=== PATIENT | male | born 1955 | race African-American/Black ===

== ENCOUNTER 2017-02-23 07:21 | Emergency (ER) | payer OTHER, MEDICAID ==
[2017-02-23 07:29] VITALS: RESP 20; O2SAT 94
--- NOTE | 2017-02-23 07:58 | EDPHY ---
H & P Stated Complaint: pain B Hamstings since Saturday; back pain Time Seen by Provider: 02/23/17 07:48 HPI/ROS: CHIEF COMPLAINT: Bilateral hamstring pain HISTORY OF PRESENT ILLNESS: The patient is a 61-year-old man who comes to the emergency department complaining of hamstring pain bilaterally. He is concerned about DVT. He has a history of DVT and PEs. He is currently taking Coumadin. His INR 2 weeks ago was 3.0. He also has a history of chronic low back pain and sciatica and is treated with gabapentin and pain management. He states that yesterday he was hoping people move and on his feet more than usual. He thinks that this may have caused muscle pain or worsening of his sciatica but is concerned and wants to make sure does not have another blood clot. REVIEW OF SYSTEMS: Constitutional: denies: chills, fever, recent illness, recent injury EENTM: denies: blurred vision, double vision, nose congestion Respiratory: denies: cough, shortness of breath Cardiac: denies: chest pain, irregular heart rate, lightheadedness, palpitations Gastrointestinal/Abdominal: denies: abdominal pain, diarrhea, nausea, vomiting, blood streaked stools Genitourinary: denies: dysuria, frequency, hematuria, pain Musculoskeletal: See HPI Skin: denies: lesions, rash, jaundice, bruising Neurological: denies: headache, numbness, paresthesia, tingling, dizziness, weakness Hematologic/Lymphatic: denies: blood clots, easy bleeding, easy bruising Immunologic/allergic: denies: HIV/AIDS, transplant EXAM: GENERAL: Well-appearing, well-nourished and in no acute distress. HEAD: Atraumatic, normocephalic. EYES: Pupils equal round and reactive to light, extraocular movements intact, sclera anicteric, conjunctiva are normal. ENT: TMs normal, nares patent, oropharynx clear without exudates. Moist mucous membranes. NECK: Normal range of motion, supple without lymphadenopathy or JVD. LUNGS: Breath sounds clear to auscultation bilaterally and equal. No wheezes rales or rhonchi. HEART: Regular rate and rhythm without murmurs, rubs or gallops. ABDOMEN: Soft, nontender, normoactive bowel sounds. No guarding, no rebound. No masses appreciated. BACK: No CVA tenderness, no spinal tenderness, step-offs or deformities EXTREMITIES: Pain in bilateral hamstring region, no tenderness or cords. No erythema or swelling. NEUROLOGICAL: Cranial nerves II through XII grossly intact. Normal speech, normal gait. 5/5 strength, normal movement in all extremities, normal sensation PSYCH: Normal mood, normal affect. SKIN: Warm, dry, normal turgor, no visible rashes or lesions. Source: Patient Exam Limitations: No limitations - Personal History Current Tetanus/Diphtheria Vaccine: Yes Tetanus Vaccine Date: WITHIN 10 YRS - Medical/Surgical History Hx Asthma: No Hx Chronic Respiratory Disease: No Hx Diabetes: No Hx Cardiac Disease: No Hx Renal Disease: No Hx Cirrhosis: No Hx Alcoholism: No Hx HIV/AIDS: No Hx Splenectomy or Spleen Trauma: No Other PMH: Fast Heart Rate, DJD, Blood Clots, R hip replacement (second surgery to clear up infection 2010). carpal tunnel surgery, pulmonary emboli. chronic pain, HYPERLIPID. HTN. gout - Family History Significant Family History: No pertinent family hx - Social History Smoking Status: Never smoked Alcohol Use: Sober Drug Use: None Constitutional: Initial Vital Signs Temperature (C) 36.7 C 02/23/17 07:23 Heart Rate 94 02/23/17 07:23 Respiratory Rate 20 02/23/17 07:23 Blood Pressure 166/93 H 02/23/17 07:23 O2 Sat (%) 94 02/23/17 07:23 O2 Delivery Mode Room Air Allergies/Adverse Reactions: hydromorphone HCl [From Dilaudid] Allergy (Verified 02/23/17 07:30) oxycodone [From OxyContin] Allergy (Verified 02/23/17 07:30) Home Medications: Medication Instructions Recorded Allopurinol [Allopurinol 300 MG 300 mg PO DAILY 01/12/12 (RX)] Warfarin Sodium [Coumadin 5MG (RX)] 7 mg PO DAILY16 07/20/12 oxyCODONE/APAP 5/325 [Percocet 1 - 2 tab PO Q4-6PRN PRN #20 tab 03/30/13 5/325 (*)] Gabapentin 08/15/15 Tizanidine HCl 02/23/17 Medical Decision Making - Diagnostics Imaging Results: Imaging Impressions Extremity Venous Study 02/23/17 07:54 Impression: No deep venous thrombosis bilateral legs. Findings and recommendations discussed with Emergency Department physician, LUCIO DIAZ at 10:11 hour, 02/23/2017. Final report concurs with initial preliminary interpretation. ED Course/Re-evaluation: 10:15 a.m. we discussed the patient's ultrasound results and INR. He is reassured and is ready to go home. He feels that this is likely musculoskeletal because his sciatica typically is only on the right side. His pain is improved with ibuprofen. He is on a pain management program. He declines further workup or testing at this time. We discussed indications for returning. Differential Diagnosis: Partial list of the Differential diagnosis considered include but were not limited to; muscle strain, tendinitis, DVT, radiculopathy and although unlikely based on the history and physical exam, I also considered fracture, infection. I discussed these differential diagnoses and the plan with the patient as well as the usual and expected course. The patient understands that the diagnosis is provisional and that in medicine we are not always correct and that further workup is often warranted. Usual and customary warnings were given. All of the patient's questions were answered. The patient was instructed to return to the emergency department should the symptoms at all worsen or return, otherwise to followup with the physician as we discussed. - Data Points Laboratory Results: 02/23/17 07:56 PT 30.5 SEC H SEC (12.0-15.0) INR 2.93 H (0.83-1.16) APTT 40.4 SEC H SEC (23.0-38.0) Medications Given: Discontinued Medications Ibuprofen (Motrin) 800 mg PO EDNOW ONE Stop: 02/23/17 08:13 Last Admin: 02/23/17 08:15 Dose: 800 mg Departure - Departure Disposition: Home, Routine, Self-Care Clinical Impression: Leg pain, posterior Qualifiers: Laterality: unspecified laterality Qualified Code(s): M79.606 - Pain in leg, unspecified Condition: Fair Instructions: Leg Pain (ED) Referrals: Yung Santoyo DO [Primary Care Provider] - As per Instructions
[2017-02-23] MEDS ORDERED: IBUPROFEN 200 MG TAB PO ONE (08:12)
[2017-02-23 08:20] LABS: INR 2.93 (0.83-1.16); PROTIME(PATIENT) 30.5 SEC (12.0-15.0)
[2017-02-23 08:21] LABS: APTT 40.4 SEC (23.0-38.0)
[2017-02-23 10:25] VITALS: BP 119/80; PULSE 74; TEMP 99
== END 2017-02-23 10:23 | disposition home or self-care (01) ==
LOC: CED 07:21
DX: M79.605 Pain in left leg (principal); M79.604 Pain in right leg; I10 Essential (primary) hypertension; Z79.01 Long term (current) use of anticoagulants
CPT/HCPCS: 85610-PO; 85730-PO; 93970-PO

== ENCOUNTER 2017-04-11 07:57 | Emergency (ER) | payer OTHER, MEDICAID ==
[2017-04-11 08:15] VITALS: RESP 18; TEMP 98.8
--- NOTE | 2017-04-11 08:42 | EDPHY ---
H & P Time Seen by Provider: 04/11/17 08:28 HPI/ROS: CHIEF COMPLAINT: Right-sided mid back pain HISTORY OF PRESENT ILLNESS: 61-year-old male with a history of DJD presents with right-sided mid back pain. Onset back pain approximately 2 weeks ago. The back pain increases with bending and movement. The pain does not radiate and is not pleuritic. Alleviated with his usual pain medications, including Percocet. Planning to get a massage today, but he wants to make sure that this is okay. History of prior DVT and pulmonary embolism, on Coumadin. Last INR 3 weeks ago was therapeutic. He has a long history of right-sided low back pain and sciatica, for which he takes Percocet and muscle relaxants regularly. He is currently in a pain management program. Concern is pain is related to DJD. Denies fever, abdominal pain, hematuria, chest pain or shortness of breath. REVIEW OF SYSTEMS: Constitutional: No fever, no chills Eyes: No visual changes ENT: No sore throat Respiratory: No cough, no shortness of breath Cardiac: No chest pain Gastrointestinal: No nausea, no vomiting, no abdominal pain Genitourinary: No hematuria, no dysuria Musculoskeletal: No leg pain or swelling Skin: No rash Neurological: No headache, no numbness, no weakness Psychiatric: No depression Past Medical/Surgical History: Hip replacement Right-sided sciatica Social History: Smoking Status: Never smoked Physical Exam: General Appearance: Alert, pleasant, does not appear in pain Eyes: Pupils equal and round, no conjunctival pallor or injection ENT, Mouth: Mucous membranes moist Neck: Normal inspection Respiratory: Lungs are clear to auscultation Cardiovascular: Regular rate and rhythm Gastrointestinal: Abdomen is soft and nontender Back: Normal inspection, no midline tenderness to palpation or percussion, no paraspinous tenderness Neurological: A&O, nonfocal, normal gait Skin: Warm and dry, no rash Extremities: Nontender, no pedal edema Psychiatric: Mood and affect normal Constitutional: Initial Vital Signs Temperature (C) 37.1 C 04/11/17 08:12 Heart Rate 94 04/11/17 08:12 Respiratory Rate 18 04/11/17 08:12 Blood Pressure 131/71 H 04/11/17 08:12 O2 Sat (%) 93 04/11/17 08:12 O2 Delivery Mode Room Air Allergies/Adverse Reactions: hydromorphone HCl [From Dilaudid] Allergy (Verified 04/11/17 08:10) oxycodone [From OxyContin] Allergy (Verified 04/11/17 08:10) Home Medications: Medication Instructions Recorded Allopurinol [Allopurinol 300 MG 300 mg PO DAILY 01/12/12 (RX)] Warfarin Sodium [Coumadin 5MG (RX)] 7 mg PO DAILY16 07/20/12 Gabapentin 08/15/15 Tizanidine HCl 02/23/17 Medical Decision Making ED Course/Re-evaluation: This patient presents with mid back pain, that is clearly positional in nature. X-ray reveals DJD in the thoracic spine. INR is subtherapeutic, though I do not suspect that he has pulmonary embolism, and given the nature of the back pain and atypical symptoms for PE. No clinical suspicion for kidney stone or epidural abscess. I feel that he is safe and stable for discharge. He will follow up with his primary care physician and return for worsening symptoms or any concerns. He will take his pain medications as previously prescribed. He will also obtain a massage today. Differential Diagnosis: Differential diagnosis includes does not limited to kidney stone, pyelonephritis , pulmonary embolism, pneumonia, epidural abscess. - Data Points Laboratory Results: 04/11/17 08:45 PT 14.6 SEC SEC (12.0-15.0) INR 1.17 H (0.83-1.16) Departure - Departure Disposition: Home, Routine, Self-Care Clinical Impression: Right-sided thoracic back pain Qualifiers: Chronicity: acute Qualified Code(s): M54.6 - Pain in thoracic spine Condition: Good Instructions: Back Pain (ED) Additional Instructions: The chest X-ray shows arthritis in your thoracic spine. I suspect that this arthritis is causing your mid back pain. Your INR is running low today. Please go to the anticoagulation clinic for advice on how to adjust your Coumadin dosing. Return for worsening symptoms or any concerns. Referrals: Yung Santoyo, [Doctor of Osteopathy] - 3-4 days, if not improved
[2017-04-11 09:01] LABS: INR 1.17 (0.83-1.16); PROTIME(PATIENT) 14.6 SEC (12.0-15.0)
[2017-04-11 09:27] VITALS: BP 101/73; PULSE 88; O2SAT 95
== END 2017-04-11 09:27 | disposition home or self-care (01) ==
LOC: CED 07:57
CPT/HCPCS: 71020-PO; 85610-PO

== ENCOUNTER 2017-12-02 09:31 | Emergency (ER) | payer OTHER, MEDICAID ==
[2017-12-02] MEDS ORDERED: KETOROLAC 30 MG/1 ML SDV IM ONE (09:49)
[2017-12-02] MEDS ORDERED: CYCLOBENZAPRINE 10 MG TAB PO ONE (09:50)
--- NOTE | 2017-12-02 09:57 | EDPHY ---
H & P Time Seen by Provider: 12/02/17 09:35 HPI/ROS: HPI Lower back pain. 62-year-old male by private vehicle. This patient has a history of chronic lower back pain originating on the right side, sacroiliac area. He reports that he returned home on a flight from [facility] about 1 week ago. He reports that since this flight he has had typical right lower back pain which she states has persisted despite his use of Percocet. He is in a pain management program for his back pain as well as hip pain. He reports that the pain originates in the right lower back and radiates across his lower back. He has had no bowel or bladder incontinence. No loss of sensation or weakness in his extremities. Denies any abdominal pain. No fever. He has no history of malignancy. There is no history of fall or trauma. ROS: Constitutional: No fever, no chills. No weakness. Eyes: No discharge. No changes in vision. ENT: No sore throat. No nasal congestion or rhinorrhea. Respiratory: No cough. No shortness of breath. Cardiac: No chest pain, no palpitations. Gastrointestinal: No abdominal pain, no vomiting, no diarrhea. Genitourinary: No hematuria. No dysuria or increased frequency with urination. Musculoskeletal: As above. No neck pain. No myalgias or arthralgias. Skin: No rashes. Neurological: No headache. No focal weakness or altered sensation. Past medical history: Pulmonary embolisms, last INR 2.9 on November 07 of this year. 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 Social history: Nonsmoker. Currently here by himself. Denies alcohol. Physical Exam: General Appearance: Alert, no distress. This patient is responding to questions appropriately and in full sentences. This patient appears well- hydrated and well-nourished. Eyes: Pupils equal and round no pallor or injection. No lid edema, erythema or injection. Back exam: No midline cervical, thoracic, lumbar tenderness on palpation. He does not have significant paraspinal tenderness on palpation of the LS spine bilaterally. He has vague right-sided sacroiliac area tenderness on palpation. No associated soft tissue changes. No edema, no erythema, no ecchymosis, no warmth. He has a negative same side and cross side straight leg raise test. He is neurologically intact in all myotomes in dermatomes of the bilateral lower extremities. Respiratory: There are no retractions, lungs are clear to auscultation with good air movement bilaterally. Cardiovascular: Regular rate and rhythm. No murmur. Gastrointestinal: Abdomen is soft and nontender, no masses, bowel sounds normal. No focal tenderness at McBurney's point. No Maldonado sign. Neurological: Motor sensory function is grossly intact. Cranial nerves are normal. Gait is normal. Skin: Warm and dry, no rashes. Musculoskeletal: Neck is supple and nontender. Extremities are symmetrical. All joints range without pain or impingement. Psychiatric: No agitation. No depression. Database: EKG: Imaging: Right hip x-ray series: Study compared to prior study from September of 2013. No acute pathology. Interpreted by me. Procedures: Emergency department course: Vital signs reviewed and are normal. Patient's presentation is consistent with a sacroiliac sprain. Physical exam and history are otherwise reassuring. No red flags. Patient will be given 60 mg of IM Toradol x1 and 10 mg of Flexeril. We will try to avoid narcotic pain medications in the emergency department. He is in agreement with this. 10:30 a.m., the patient is feeling better after above pain medications. He is concerned however about his right hip and the fact that he has not had an x-ray on it in years. He is asking if an x-ray can be obtained here in the emergency department so that he can have it followed up with his primary care physician and coding and reimbursement specialist. He was sent for a right hip x-ray series: He denies any acute right hip pain. 11:00 a.m., patient re-evaluated. Resting comfortably at this time. Results of his x-rays were discussed with him. Repeat neurologic Assessment is nonfocal. He is up and ambulatory with his normal gait. He feels comfortable going home at this time and I feel he is safe for discharge. He will be driven home by family member. Follow-up and return to emergency department precautions have been reviewed with him. All of his questions were answered. He was discharged from the emergency department in good condition. Differential Diagnosis: The differential diagnosis on this patient includes but is not limited to sacroiliac sprain, sacroiliitis. Ureterolithiasis, sciatica, epidural compression syndrome, epidural abscess, radiculopathy, myelopathy, acute traumatic injury unlikely. This represents a partial list of diagnoses considered. These considerations are based on history, physical exam, past history, reassessment and diagnostic testing. Smoking Status: Never smoked Constitutional: Initial Vital Signs Temperature (C) 37 C 12/02/17 09:32 Heart Rate 80 12/02/17 09:32 Respiratory Rate 18 12/02/17 09:32 Blood Pressure 128/85 H 12/02/17 09:32 O2 Sat (%) 95 12/02/17 09:32 O2 Delivery Mode Room Air Allergies/Adverse Reactions: hydromorphone HCl [From Dilaudid] Allergy (Verified 12/02/17 09:39) Other-Enter Comments oxycodone [From OxyContin] Allergy (Verified 12/02/17 09:39) Other-Enter Comments Home Medications: Medication Instructions Recorded Gabapentin 08/15/15 Tizanidine HCl 02/23/17 Allopurinol 12/02/17 Oxycodone HCl/Acetaminophen 12/02/17 Medical Decision Making - Diagnostics Imaging Results: Imaging Impressions Hip X-Ray 12/02/17 10:31 Impression: Stable right hip arthroplasty with extensive heterotopic ossification that likely limits range of motion. - Data Points Medications Given: Discontinued Medications Cyclobenzaprine HCl (Flexeril) 10 mg PO EDNOW ONE Stop: 12/02/17 09:51 Last Admin: 12/02/17 09:55 Dose: 10 mg Ketorolac Tromethamine (Toradol) 60 mg IM EDNOW ONE Stop: 12/02/17 09:50 Last Admin: 12/02/17 09:57 Dose: 60 mg Departure - Departure Disposition: Home, Routine, Self-Care Clinical Impression: Lower back pain Condition: Good Instructions: Low Back Strain (ED), Acute Low Back Pain (ED) Additional Instructions: Read and follow provided instructions. Follow-up with your primary care physician in 1-2 days for re-evaluation. Continue taking your medications as prescribed. Return to the emergency department for worsening symptoms, worsening pain, fever , loss of sensation or weakness in lower extremities, bowel or bladder incontinence or other serious concerns. Referrals: Yung Santoyo DO [Primary Care Provider] - As per Instructions
[2017-12-02 10:59] VITALS: BP 98/69
== END 2017-12-02 10:58 | disposition home or self-care (01) ==
LOC: CED 09:31
DX: M54.5 Low back pain (principal)
CPT/HCPCS: 73502; 96372; 99284; J1885

== ENCOUNTER 2017-12-04 06:29 | Emergency (ER) | payer OTHER, MEDICAID ==
[2017-12-04] MEDS ORDERED: LIDOCAINE 4%/MENTHOL 1% PATCH TD ONE (07:33)
[2017-12-04] MEDS ORDERED: DIAZEPAM 5 MG TAB PO ONE (07:34)
[2017-12-04] MEDS ORDERED: KETOROLAC 30 MG/1 ML SDV IVP ONE (07:35)
[2017-12-04] MEDS ORDERED: GABAPENTIN 100 MG CAP PO ONE (07:49)
--- NOTE | 2017-12-04 07:52 | EDPHY ---
H & P Time Seen by Provider: 12/04/17 06:59 HPI/ROS: This patient complains of worsening low back pain. He has chronic low back pain typically centered in the right sacroiliac region. The at baseline his pain tends to be around 6/10. This morning when he stepped out of bed he had abrupt worsening of the pain to 9/10 intensity primarily in the left lumbar area with associated muscle spasm in left lumbar and right mid back. He reports that he did not take his gabapentin last night. He reports that he does not take this as regularly it is prescribed because he thinks that causes loose stools. He also reports that he did not take a Percocet this morning or his tizanidine muscle relaxant because getting to the medication bottles would of required climbing stairs and he felt he had too much back pain that worsens with movement to climb the stairs. Other than movement he reports no other exacerbating factors. The pain does not radiate beyond the low back. His girlfriend drove him here for further evaluation and treatment. I reviewed his visit here 2 days ago when he was treated with Toradol 60 mg IM and Flexeril 10 mg with transient relief. ROS: Constitutional: No fevers or chills HEENT: No URI symptoms or other complaints new line pulmonary: Mild dyspnea on exertion attributes to his deconditioning. No cough, pleuritic pain or shortness of breath. Cardiovascular: No chest pain. GI: No abdominal pain : No testicular pain, swelling, dysuria or hematuria. Integumentary: No diaphoresis. Neuro: No radiation of his pain. No focal numbness tingling weakness. No bowel or bladder incontinence. 7 point ROS is otherwise negative. Smoking Status: Never smoked Physical Exam: General Appearance: Pleasant 62-year-old black male Alert, no distress. Eyes: Pupils equal and round no pallor or injection. ENT, Mouth: Mucous membranes moist. Respiratory: There are no retractions, lungs are clear to auscultation. Cardiovascular: Regular rate and rhythm. Gastrointestinal: Abdomen is soft and nontender, no masses, bowel sounds normal. Back: Minimal midline tenderness around L4. Primarily he has muscle spasm and tenderness left lumbar and right mid back. Palpation is areas reproduces pain. He has limited range of motion in flexion due to pain. Straight leg raise is negative bilaterally. Neurological: GCS 15. Patient maintains normal light touch sensory exam bilateral lower extremities. He maintains 5/5 strength in great toe dorsiflexion plantar flexion bilaterally and weak but symmetric patellar and Achilles DTRs bilaterally. Skin: Warm and dry, no rashes. Extremities are symmetrical, full range of motion. Psychiatric: Mood and affect are normal DIFFERENTIAL DIAGNOSIS: After history and physical exam differential diagnosis was considered for low back strain, acute on chronic low back pain, sacroiliac sprain, epidural abscess unlikely, discogenic disease Constitutional: Initial Vital Signs Temperature (C) 36.9 C 12/04/17 06:37 Heart Rate 78 12/04/17 06:37 Respiratory Rate 20 12/04/17 06:37 Blood Pressure 158/110 H 12/04/17 06:37 O2 Sat (%) 95 12/04/17 06:37 O2 Delivery Mode Room Air Allergies/Adverse Reactions: hydromorphone HCl [From Dilaudid] Allergy (Verified 12/04/17 06:36) Other-Enter Comments oxycodone [From OxyContin] Allergy (Verified 12/04/17 06:36) Other-Enter Comments Home Medications: Medication Instructions Recorded Gabapentin 08/15/15 Tizanidine HCl 02/23/17 Allopurinol 12/02/17 Oxycodone HCl/Acetaminophen 12/02/17 Coumadin 12/04/17 Lidocaine [Lidoderm] 1 - 2 each TP DAILY #30 adh..patch 12/04/17 MDM/Departure - MDM Medications Given: Miscellaneous Information (Patch Removal) 1 ea TD DAILY21 SIDDHARTHA Stop: 06/02/18 20:59 Last Admin: 12/04/17 08:08 Dose: Not Given Discontinued Medications Diazepam (Valium) 10 mg PO EDNOW ONE Stop: 12/04/17 07:35 Last Admin: 12/04/17 08:07 Dose: 10 mg Gabapentin (Neurontin) 200 mg PO EDNOW ONE Stop: 12/04/17 07:50 Last Admin: 12/04/17 08:07 Dose: 200 mg Ketorolac Tromethamine (Toradol) 30 mg IVP EDNOW ONE Stop: 12/04/17 07:36 Last Admin: 12/04/17 08:07 Dose: 30 mg Miscellaneous Medication (Icy Hot Lidocaine/Menthol 4%/1% Patch) 2 patch TD EDNOW ONE Stop: 12/04/17 07:34 Last Admin: 12/04/17 08:07 Dose: 2 patch ED Course/Re-evaluation: Lidoderm patches applied, gabapentin administered p.o., Valium p.o. And Toradol 30 mg IV with relief of discomfort. Studies: CBC is normal INR is 1.9 I counseled patient to take an extra 4 mg of Coumadin 1 day only and continue his regular 7.5 mg thereafter with his usual follow up for INR check. Discussion: Findings are consistent with low back strain in addition to his chronic pain. Advised him to keep his medications by his bedside that if he has exacerbation he is able to get to his medications and try than 1st prior to coming back to the emergency department. Will add Lidoderm patches to his treatment regimen as he seemed to benefit from this while here. No evidence of cauda equina syndrome or other complicating factors today. He understands need to return emergency department should he develop significant worsening of symptoms despite the treatment plan. - Depart Disposition: Home, Routine, Self-Care Clinical Impression: Acute low back pain Qualifiers: Back pain laterality: bilateral Sciatica presence: without sciatica Qualified Code(s): M54.5 - Low back pain Condition: Good Instructions: Acute Low Back Pain (ED) Additional Instructions: Diagnosis: Low back pain Plan: Try to be regular with your gabapentin dosing. add Lidoderm patches to current medications. Continue your muscle relaxant regularly as well. Take Tylenol in addition to current medications if [id number] mg per 4-6 hours with maximum of 3000 mg per 24 hr. Continue your Coumadin. Taken extra 4 mg of Coumadin with her next dose and then continue at the same level. Recheck her community regular schedule time. Starts daily stretches prior to taking muscle relaxants in the morning. 3-5 minutes each of: "Butterfly stretch," "Sphinx stretch", "pigeon stretch", and hamstring stretch. Avoid lifting more than 5-10 pounds until symptoms improve. Call your primary care physician for a followup appointment in 3-7 days. Go to the emergency department for worsening of your symptoms despite the treatment plan. Return for any significant worsening of your symptoms despite the treatment plan. Prescriptions: Lidocaine [Lidoderm] 1 - 2 each TP DAILY #30 adh..patch Referrals: Patient,NotPresent [Primary Care Provider] - As per Instructions
[2017-12-04 09:00] LABS: PLATELET COUNT 192 10^3/uL (150-400)
[2017-12-04 09:10] LABS: INR 1.95 (0.83-1.16); PROTIME(PATIENT) 22.3 SEC (12.0-15.0)
[2017-12-04 09:52] VITALS: BP 119/73
[2017-12-04] MEDS ORDERED: PATCH REMOVAL 1 EA PATCH TD SCH (21:00)
== END 2017-12-04 09:45 | disposition home or self-care (01) ==
LOC: CED 06:29
DX: M54.5 Low back pain (principal)
CPT/HCPCS: 96374; 99284; J1885

== ENCOUNTER 2018-02-07 09:04 | Emergency (ER) | payer OTHER, MEDICAID ==
--- NOTE | 2018-02-07 09:08 | EDPHY ---
H & P Time Seen by Provider: 02/07/18 09:08 HPI/ROS: CHIEF COMPLAINT: Right-sided back pain HISTORY OF PRESENT ILLNESS: Patient 1st started having this after a plane flight to [place] in November. He was cramped in the seat and was not able to stretch out and started having pain when he got off the plane. He was seen here twice for back pain which he describes as both in his right upper back as well as bilateral lower. The lower back pain has been getting better and is not really noticeable now. He had resolution of his right-sided upper back pain and then 2 weeks ago reoccurred. He says it is worse in the morning and worse with movement and deep breathing but better as the day goes along. Often in the evening it will reoccur but gets better with ice. It does not radiate, not associated with cough or palpitations or fever or chills or weakness or numbness in extremities. Says pain is moderate now 6 to 7/10. He primarily wants to know if I think it is something serious or dangerous, or if i think it is just likely muscular and he should wait it out. He had his INR checked 2 days ago and was 2.6; he had pulmonary embolism diagnosed in 2006 and 2008. Symptoms he has today are not similar to when he was diagnosed with pulmonary embolism. REVIEW OF SYSTEMS: Eye: no change in vision ENT: no sore throat Cardiac: No palpitations or syncope, no anterior chest pain. Pulmonary: No cough or hemoptysis. Abdomen: no vomiting, diarrhea, abdominal pain Musculoskeletal: HPI, no recent injury or fall or trauma Skin: no rash Neuro: no headache Constitutional: no fever : no urinary symptoms A comprehensive 10 point review of systems is otherwise negative aside from elements mentioned in the history of present illness. PAST MEDICAL HISTORY: Pulmonary embolism on warfarin, previous back pain. ED visit dated 12/04/2017 and 12/02/2017 reviewed was treated with Valium Toradol and gabapentin and Flexeril Social history: Primary care is Dr. Santoyo General Appearance: Alert and conversant, cooperative. Eyes: No scleral icterus. ENT, Mouth: Normal mucous membranes. Respiratory: Normal respiratory effort, breath sounds equal, lungs are clear to auscultation. Speaks in full sentences. No crepitus. Cardiovascular: Regular rate and rhythm. Gastrointestinal: Abdomen is soft and non tender. Neurological: Alert, face symmetric, normal sensory to light touch in extremities. Normal dorsiflexion and plantar flexion of toes, patellar reflexes 1+ symmetric, normal strength in lower and upper extremities. Ambulatory. Skin: There is no evidence of zoster or erythema or warmth to palpation over his back in the area of pain. Musculoskeletal: Patient does have paraspinal muscle tenderness in the mid and lower thoracic spine on the right side but not the left. He does not have any midline spinal tenderness. There is no swelling over the area in question where his symptoms are. Twisting his torso to the left and pushing on the right paraspinal muscles reproduces symptoms. Psychiatric: Not agitated. Emergency Department course/MDM: Likely muscular, differential considered including but not limited to aortic aneurysm or pulmonary embolism or ACS or pneumonia or pneumothorax, local hematoma or infection or zoster or vertebral fracture. Patient declined pain medication. He will use the lidocaine patches and ice pack which are helping him so far, follow-up with primary care doctor if not getting better in a week. Smoking Status: Never smoked Constitutional: Initial Vital Signs Temperature (C) 36.9 C 02/07/18 09:09 Heart Rate 96 02/07/18 09:09 Respiratory Rate 18 02/07/18 09:09 Blood Pressure 108/80 02/07/18 09:09 O2 Sat (%) 95 02/07/18 09:09 O2 Delivery Mode Room Air Allergies/Adverse Reactions: hydromorphone HCl [From Dilaudid] Allergy (Verified 12/04/17 06:36) Other-Enter Comments oxycodone [From OxyContin] Allergy (Verified 12/04/17 06:36) Other-Enter Comments Home Medications: Medication Instructions Recorded Gabapentin 08/15/15 Tizanidine HCl 02/23/17 Allopurinol 12/02/17 Oxycodone HCl/Acetaminophen 12/02/17 Coumadin 12/04/17 Lidocaine [Lidoderm] 1 - 2 each TP DAILY #30 adh..patch 12/04/17 Departure - Departure Disposition: Home, Routine, Self-Care Clinical Impression: Back pain Qualifiers: Back pain location: thoracic back pain Chronicity: unspecified Back pain laterality: right Qualified Code(s): M54.6 - Pain in thoracic spine Condition: Good Instructions: Back Pain (ED) Additional Instructions: Follow-up with your doctor if not getting better in about a week. Please return for shortness of breath or worsening pain, fever, any weakness or numbness in arms or legs. Referrals: Yung Santoyo, [Primary Care Provider] - As per Instructions
[2018-02-07 09:16] VITALS: BP 108/80
== END 2018-02-07 09:40 | disposition home or self-care (01) ==
LOC: CED 09:04
DX: M54.6 Pain in thoracic spine (principal); Z79.01 Long term (current) use of anticoagulants; Z86.711 Personal history of pulmonary embolism

== ENCOUNTER 2018-10-07 09:52 | Emergency (ER) | payer OTHER, MEDICAID ==
[2018-10-07 10:09] VITALS: BP 119/82
[2018-10-07] MEDS ORDERED: COLCHICINE 0.6 MG CAP/TAB PO ONE (10:18)
[2018-10-07] MEDS ORDERED: INDOMETHACIN 25 MG CAP PO ONE (10:18)
--- NOTE | 2018-10-07 10:19 | EDPHY ---
H & P Stated Complaint: left ankle pain "gouty" , since . painful . Hx of gout Time Seen by Provider: 10/07/18 09:59 HPI/ROS: CHIEF COMPLAINT: Gout HISTORY OF PRESENT ILLNESS: The patient is a 62-year-old man with a history of gout who comes to the emergency department complaining of left ankle pain. He states that this is a common area where he ask out. He states that he bumped his ankle a few days ago and has not been very faithful in taking his allopurinol recently and also had a bunch of shellfish last week. He has had gradually increasing pain over the last 2 days. He states that this is consistent with previous gout attacks. He denies any overt trauma or injury. He has restarted his allopurinol but is here asking for colchicine and indomethacin. He also takes warfarin for history of DVTs and has been taking this regularly. Severity: Moderate Modifying factors: None REVIEW OF SYSTEMS: Constitutional: denies: chills, fever, recent illness, recent injury EENTM: denies: blurred vision, double vision, nose congestion Respiratory: denies: cough, shortness of breath Cardiac: denies: chest pain, irregular heart rate, lightheadedness, palpitations Gastrointestinal/Abdominal: denies: abdominal pain, diarrhea, nausea, vomiting, blood streaked stools Genitourinary: denies: dysuria, frequency, hematuria, pain Musculoskeletal: See HPI Skin: denies: lesions, rash, jaundice, bruising Neurological: denies: headache, numbness, paresthesia, tingling, dizziness, weakness Hematologic/Lymphatic: denies: blood clots, easy bleeding, easy bruising Immunologic/allergic: denies: HIV/AIDS, transplant 10 systems reviewed and negative except as noted EXAM: GENERAL: Well-appearing, well-nourished and in no acute distress. HEAD: Atraumatic, normocephalic. EYES: Pupils equal round and reactive to light, extraocular movements intact ENT: oropharynx clear without exudates. Moist mucous membranes. NECK: Normal range of motion, supple without lymphadenopathy or JVD. LUNGS: Breath sounds clear HEART: Regular rate and rhythm without murmurs, rubs or gallops. ABDOMEN: Soft, nontender, normoactive bowel sounds. No guarding, no rebound. No masses appreciated. BACK: No CVA tenderness, no spinal tenderness, step-offs or deformities EXTREMITIES: Minimal swelling to left medial malleolus. No tenderness to palpation. Moderate pain with range of motion. No warmth or erythema. Normal range of motion, no pitting or edema. No clubbing or cyanosis. NEUROLOGICAL: Cranial nerves II through XII grossly intact. Normal speech, normal gait. 5/5 strength, normal movement in all extremities, normal sensation , normal reflexes PSYCH: Normal mood, normal affect. SKIN: Warm, dry, normal turgor Source: Patient - Personal History Current Tetanus/Diphtheria Vaccine: Unsure Current Tetanus Diphtheria and Acellular Pertussis (TDAP): Unsure Tetanus Vaccine Date: WITHIN 10 YRS - Medical/Surgical History Hx Asthma: No Hx Chronic Respiratory Disease: No Hx Diabetes: No Hx Cardiac Disease: No Hx Renal Disease: No Hx Cirrhosis: No Hx Alcoholism: No Hx HIV/AIDS: No Hx Splenectomy or Spleen Trauma: No Other PMH: Fast Heart Rate, DJD, Blood Clots, R hip replacement (second surgery to clear up infection 2010). carpal tunnel surgery, pulmonary emboli. chronic pain, HYPERLIPID. HTN. gout - Family History Significant Family History: No pertinent family hx - Social History Smoking Status: Never smoked Alcohol Use: Sober Drug Use: None Constitutional: Initial Vital Signs Temperature (C) 37 C 10/07/18 09:57 Heart Rate 88 10/07/18 09:57 Respiratory Rate 20 10/07/18 09:57 Blood Pressure 119/82 H 10/07/18 09:57 O2 Sat (%) 95 10/07/18 09:57 O2 Delivery Mode Room Air Allergies/Adverse Reactions: hydromorphone HCl [From Dilaudid] Allergy (Verified 10/07/18 10:09) Other-Enter Comments oxycodone [From OxyContin] Allergy (Verified 10/07/18 10:09) Other-Enter Comments Home Medications: Medication Instructions Recorded Gabapentin 08/15/15 Tizanidine HCl 02/23/17 Allopurinol 12/02/17 Oxycodone HCl/Acetaminophen 12/02/17 Coumadin 12/04/17 Colchicine 0.6 mg PO BID #30 capsule 10/07/18 Indomethacin 50 mg PO TID #30 capsule 10/07/18 Medical Decision Making ED Course/Re-evaluation: The patient has symptoms consistent with his previous gout attacks. He will continue taking allopurinol and will add colchicine and indomethacin. He will also continue taking his warfarin. He declines further treatment. He declines x-rays. He will follow up with his primary doctor in the next few weeks. Differential Diagnosis: Partial list of the Differential diagnosis considered include but were not limited to; gout flare, ankle sprain and although unlikely based on the history and physical exam, I also considered fracture, septic joint. I discussed these differential diagnoses and the plan with the patient as well as the usual and expected course. The patient understands that the diagnosis is provisional and that in medicine we are not always correct and that further workup is often warranted. Usual and customary warnings were given. All of the patient's questions were answered. The patient was instructed to return to the emergency department should the symptoms at all worsen or return, otherwise to followup with the physician as we discussed. - Data Points Medications Given: Discontinued Medications Colchicine (Colchicine) 1.2 mg PO EDNOW ONE Stop: 10/07/18 10:19 Last Admin: 10/07/18 10:32 Dose: 1.2 mg Indomethacin (Indocin) 50 mg PO EDNOW ONE Stop: 10/07/18 10:19 Last Admin: 10/07/18 10:34 Dose: 50 mg Departure - Departure Disposition: Home, Routine, Self-Care Clinical Impression: Gout flare Qualifiers: Gout site: ankle Gout etiology: other secondary cause Laterality: left Qualified Code(s): M10.472 - Other secondary gout, left ankle and foot Condition: Fair Instructions: Gout (ED) Referrals: Yung Santoyo DO [Primary Care Provider] - As per Instructions Prescriptions: Colchicine 0.6 mg PO BID #30 capsule Indomethacin 50 mg PO TID #30 capsule
== END 2018-10-07 10:39 | disposition home or self-care (01) ==
LOC: CED 09:52
DX: M10.472 Other secondary gout, left ankle and foot (principal)
CPT/HCPCS: 99284-ER